=== PATIENT | male | born 1975 | race Caucasian/White ===

== ENCOUNTER → 2023-07-13 07:28 | Outpatient (REF) | payer OTHER, SELFPAY | LOC: RCS 07:28 | PROVIDERS: ATTENDING PHYSICIAN Internal Medicine Cardiovascular Disease; FAMILY PHYSICIAN Family Medicine | DX: R06.09 Other forms of dyspnea (principal) | CPT/HCPCS: 93306 ==

== ENCOUNTER → 2023-07-28 08:12 | Outpatient (REF) | payer OTHER, SELFPAY | LOC: RCS 08:12 | PROVIDERS: ATTENDING PHYSICIAN Internal Medicine Cardiovascular Disease; FAMILY PHYSICIAN Family Medicine | DX: R07.2 Precordial pain (principal) | CPT/HCPCS: 93017 ==

== ENCOUNTER → 2023-12-24 07:32 | Outpatient (REF) | payer SELFPAY | LOC: RAD 07:32 | PROVIDERS: ATTENDING PHYSICIAN Internal Medicine Cardiovascular Disease; FAMILY PHYSICIAN Family Medicine | DX: E78.2 Mixed hyperlipidemia (principal) | CPT/HCPCS: 75571 ==

== ENCOUNTER 2025-03-02 17:51 | Emergency (ER) | payer OTHER, SELFPAY ==
[2025-03-02 17:59] VITALS: BP 140/84
[2025-03-02 18:31] LABS: Hematocrit 42.2 % (39.0-52.0); Hemoglobin 14.7 g/dL (13.0-18.0); Mean Corp Hgb Conc. 34.8 g/dL (33.0-37.0); Mean Corpuscular Volume 91.3 fL (80.0-94.0); Nucleated Red Blood Cells % 0 % (-); Platelet Count 260 10^3/uL (130-400); Red Cell Dist. Width 12.1 % (11.5-14.5)
[2025-03-02 18:46] LABS: ALT (SGPT) 28 U/L (0-50); AST (SGOT) 29 U/L (17-59); Albumin 4.7 g/dl (3.5-5.0); Alkaline Phosphatase 40 U/L (38-126); Blood Urea Nitrogen 27 mg/dl (9-20); Calcium 9.8 mg/dl (8.4-10.2); Carbon Dioxide 25 mmol/L (22-30); Chloride 108 mmol/L (98-107); Glucose 102 mg/dl (70-99); Potassium 4.3 mmol/L (3.5-5.1); Sodium 141 mmol/L (135-145); Total Protein 7.5 g/dl (6.3-8.2); eGFR > 60.00
[2025-03-02 18:50] LABS: Troponin I 0.014 ng/ml
[2025-03-02 21:37] VITALS: BP 128/79
[2025-03-02 22:00] VITALS: BP 131/85
[2025-03-02 22:43] LABS: Troponin I 0.014 ng/ml
--- NOTE | 2025-03-02 23:14 | ED.GENMED ---
History of Present Illness
General
Chief Complaint: Chest Pain
Source: patient
Time Seen by Provider: 03/02/25 21:29
History of Present Illness
History of Present Illness:
Note:
CHIEF COMPLAINT(S)
Chest tightness and discomfort for approximately one week.
HISTORY OF PRESENT ILLNESS
The patient is a 49-year-old male with a known history of coronary artery plaque build-up who presents with chest tightness that he describes as a 'little tight' on the left side. This discomfort comes and goes, beginning approximately one week ago.
The patient reports that this sensation is more noticeable when he is stressed, though it is not constant and does not seem to be triggered by physical exertion. He has not noticed it significantly during workouts, though he has ceased exercising
over the past few days. The patient states that difficulty in breathing is primarily noticed with activities such as climbing stairs, where he becomes 'a little winded.' No fevers, recent travel, or leg swelling was noted.
He has been under the care of a didactic instructor, Dr. Doty, due to prior similar symptoms that led to the discovery of coronary artery plaque following a CT scan and stress tests last year. The patient has since been taking a statin and low-dose
aspirin. The patient vapes THC but has refrained from it for the past week. Associated symptoms include occasional clammy and sweaty arms but no other signs suggestive of acute coronary syndrome.
PAST MEDICAL AND SURGICAL HISTORY
The patient previously underwent a comprehensive cardiac evaluation, including stress tests, and a CT scan which revealed coronary plaque build-up.
SOCIAL HISTORY
The patient vapes THC, though has abstained for the past week. He has significant work-related stress.
MEDICATIONS
The patient is currently taking a statin and low-dose aspirin regularly. He has recently commenced on diphenhydramine for allergic reactions.
REVIEW OF SYSTEMS
- Cardiovascular: Intermittent chest tightness on the left side, not constant, associated with stress but not exertion.
- Respiratory: Becomes slightly winded when climbing stairs.
- General: No fevers, noted clammy and sweaty arms.
PHYSICAL EXAM
General: Alert, no acute distress.
Skin: Warm, dry.
Head: Normocephalic, atraumatic.
Neck: Supple, trachea midline.
Eyes, Ears, Nose, Mouth, and Throat: Oral mucosa moist.
Cardiovascular: No murmur, normal heart sounds.
Respiratory: Respirations are non-labored.
Gastrointestinal: Abdomen nondistended.
Back: Normal range of motion, normal alignment.
Musculoskeletal: Normal ROM, normal strength.
Neurological: Alert and oriented to person, place, time, and situation. No focal neurological deficit observed.
Psychiatric: Cooperative, appropriate mood & affect.
PROBLEM LIST
- Acute: Intermittent chest tightness.
- Chronic: Coronary artery disease with plaque build-up.
PLAN
1. Repeat a troponin test to assess for myocardial damage.
2. Obtain a chest X-ray to evaluate heart size and lung clarity.
3. Review prior cardiac investigations and CT results to assess the risk of further cardiac events.
4. Possible follow-up with didactic instructor Dr. Richards office to be organized for continued monitoring and potential further investigations.
DIFFERENTIAL DIAGNOSIS
The Differential Diagnosis includes, in no particular order and is not limited to:
1. Unstable angina
2. Anxiety-related chest pain
3. Pulmonary embolism
4. Atypical chest pain
5. Gastroesophageal reflux disease (GERD)
6. Musculoskeletal chest pain
7. Costochondritis
8. Pneumonia
9. Pericarditis
10. Pleural effusion
EKG
My independent EKG interpretation is:
- Rhythm: Sinus bradycardia
- Heart rate: 58 beats per minute
- [place]: Normal
- Intervals: Normal
- Abnormalities: No acute ischemic changes
Disposition:
SUMMARY OF ENCOUNTER
The patient is a 49-year-old male presenting with chest pain that has persisted for two weeks. In the emergency department, troponin levels were measured twice and EKGs were performed twice, both with unremarkable results. A chest x-ray was
conducted showing clear lungs and a narrowed mediastinum. The patients CBC and BMP were normal. With negative troponin results and stable condition, the patient was deemed appropriate for discharge with instructions to follow up with cardiology.
PLAN
The patient is advised to avoid strenuous activities or excessive exertion until cleared by a didactic instructor. The patient should take 81 mg of aspirin daily and is instructed to return to the emergency department if symptoms worsen.
INDEPENDENT REVIEW OF LABS AND INTERPRETATION OF TESTS
- My independent review of troponin tests shows unremarkable results.
- My independent review of CBC is normal.
- My independent review of BMP is normal.
ADDITIONAL TESTING AND IMAGING CONSIDERED
None beyond what was performed.
FOLLOW-UP INSTRUCTIONS
The patient is instructed to follow up with cardiology. A note has been sent to the chest pain follow-up hotline.
MEDICATION RECONCILIATION
The patient is instructed to take aspirin 81 mg once daily.
MEDICAL DECISION MAKING
- Number and Complexity of Problems Addressed: Chronic conditions affecting care such as coronary artery disease with plaque build-up. Differential diagnosis included: unstable angina, anxiety-related chest pain, pulmonary embolism, atypical chest
pain, gastroesophageal reflux disease, musculoskeletal chest pain, costochondritis, pneumonia, pericarditis, pleural effusion.
- Data:
- Category 1: Reviewed and independently interpreted EKGs and labs, including troponin, CBC, and BMP.
- Category 2: My independent interpretation of the EKGs and chest x-ray showing clear lungs and narrowed mediastinum.
- Category 3: None discussed.
- Risk: Consideration of Admission/Observation: Escalation of care including admission/observation was considered given the complexity and risk of the patients presenting complaint, exam findings, and their underlying comorbidities. However,
ultimately I feel the patient is safe for outpatient management with close follow-up. Reasoning: Work-up reassuring, does not reveal any acute life/organ threatening processes, patients symptoms well controlled upon reevaluation, reexamination is
reassuring, vitals are stable, patient agreeable with discharge, reliable for follow-up.
DIAGNOSIS
Atypical chest pain (ICD-10 R07.89).
Phy Exam
Physical Exam
Physical Exam:
.
Scores
Heart Score for Chest Pain Patients
STEMI patient?: No
History: Slightly or Non-Suspicious
ECG: Normal
Age: >45 - <65 years
Risk Factors: 1 or 2 Risk Factors
Troponin: </= Normal Limit
Heart Score for Chest Pain Patients: 2
Heart Score Risk: 2.5% MACE over next 6 weeks
Course
Orders/Labs/Results
Orders:
Orders
03/02/25 17:52
Electrocardiogram (*1) Urgent
Reason for Study: Chest Pain
Cardiac Monitoring- Treatment ONCE
EKG- Treatment ONCE
IV Insert/Care/Rem.- Treatment PRN
O2 Therapy [RESP] Urgent
Titrate/Wean O2 to maintain O2 sat greater than (%): 90
Special Instructions: Maintain sats >/=90%
Pulse Ox/spot Check [RESP] Urgent
Quantity: 1
Special Instructions: ON ROOM AIR
03/02/25 18:06
Complete Blood Count/With Diff Urgent
Comprehensive Metabolic Panel Urgent
Troponin I Urgent
03/02/25 21:28
CR Chest - 2 Views Urgent
Comment:
Reason For Exam: cp, sob
03/02/25 21:57
Electrocardiogram (*1) Urgent
Reason for Study: Chest Pain
EKG- Treatment ONCE
03/02/25 22:06
Troponin I Urgent
Abnormal Lab Results
03/02/25
18:06
RBC 4.62 L 10^6/uL
(4.70-6.10)
MCH 31.8 H pg
(27.0-31.0)
Absolute Monos (auto) 0.7 H 10^3/uL
(0.1-0.6)
Monocytes % 9.8 H %
(1.7-9.3)
Chloride 108 H mmol/L
(98-107)
BUN 27 H mg/dl
(9-20)
Glucose 102 H mg/dl
(70-99)
03/02/25 18:06
03/02/25 18:06
Vital Signs
Initial and Last Documented VS:
Initial Vital Signs
Temp Pulse Resp BP Pulse Ox
97.9 F 74 16 140/84 98
03/02/25 17:59 03/02/25 17:59 03/02/25 17:59 03/02/25 17:59 03/02/25 17:59
Last Documented Vital Signs
Temp Pulse Resp BP Pulse Ox
97.9 F 80 14 131/85 96
03/02/25 17:59 03/02/25 22:30 03/02/25 22:30 03/02/25 22:00 03/02/25 22:30
*Pulse Oximetry
SaO2: 96
Oxygen Mode of Delivery: Room air
Patient hypoxic: no
*Critical Care Note
Total Time (30-74mins, 75-104mins- exclusive of procedures): Not Applicable
ED Attending Note
-
Portions of this chart may have been created with voice recognition software.� Occasional wrong word or��sound alike� substitutions may have occurred due to the inherent limitations of voice recognition software.
Discharge Plan
Departure
Patient Disposition: Home (Routine Discharge)
Date of Disposition: 03/02/25
Time of Disposition: 23:15
Patient with high blood pressure during this ER visit?: No
Discharge Problem:
Chest pain
Instructions: Chest Pain DCA Follow Up
Activity Restrictions/Additional Instructions:
Please take 81 mg of aspirin a day. Please avoid strenuous or exertional activity until cleared by cardiology. Please see cardiology in the next 48 hours for reevaluation. Return immediately for worsening pain, shortness breath, palpitations,
sweating, nausea, weakness of any kind, numbness, tingling or any other concerns.
Cardiology has been notified and a follow up appointment has been requested. Someone will call you on the next business day to schedule a follow up appointment.
Interventions
Interventions:
*Risk Screen - Suicide Last Done: 03/02/25 18:01
*General Assessment Last Done: 03/02/25 22:08
*Neglect/Abuse Screening Last Done: 03/02/25 18:01
*ED- Fall Risk Assessment Last Done: 03/02/25 22:08
*ED COVID-19 Vaccine History Last Done: 03/02/25 21:32
*ED Influenza Vaccine History Last Done: 03/02/25 21:32
ED- Cardiac Assessment Last Done: 03/02/25 22:08
Discharge Date and Time
Print Language: CZECH
[2025-03-02 23:28] VITALS: BP 130/92
== END 2025-03-02 23:25 | disposition home or self-care (01) ==
LOC: EMR 17:51
PROVIDERS: EMERGENCY PHYSICIAN Emergency Medicine; FAMILY PHYSICIAN Family Medicine
DX: R07.89 Other chest pain (principal); I25.10 Atherosclerotic heart disease of native coronary artery without angina pectoris; Z79.82 Long term (current) use of aspirin
CPT/HCPCS: 99283; 71046; 80053; 84484; 85025; 93005

== ENCOUNTER → 2025-03-23 08:16 | Outpatient (REF) | payer OTHER, SELFPAY | LOC: RCS 08:16 | PROVIDERS: ATTENDING PHYSICIAN Internal Medicine Cardiovascular Disease; FAMILY PHYSICIAN Physician Assistant | DX: R06.09 Other forms of dyspnea (principal) | CPT/HCPCS: 93017; 93350 ==